=== PATIENT | male | born 2000 ===

== ENCOUNTER 2023-10-17 18:02 | Emergency (ER) | payer BC ==
[~2023-10-17] VITALS: Ht 193 cm; Wt 87.5 kg
[2023-10-17] MEDS ORDERED: CEFAZOLIN SODIUM 1 GM VIAL IM STA (18:42)
[2023-10-17] MEDS ORDERED: CEFTRIAXONE 1G VIAL IVPB STA (18:51)
[2023-10-17] MEDS: DOXYCYCLINE HYCLATE 100 MG TABLET PO STA (19:25)
[2023-10-17] MEDS: CEFTRIAXONE 1G VIAL IM ONE (19:28)
[2023-10-17] MEDS: TETANUS/DIPHTHERIA TOXOID [ADULT] 0.5 ML VIAL IM ONE (19:29)
[2023-10-17] MEDS: LIDOCAINE HCL 1% 20 ML VIAL ONE (19:42)
[2023-10-17] MEDS ORDERED: LIDOCAINE HCL 400MG/20ML VIAL IJ SCH (20:00)
[2023-10-17] MEDS: LIDOCAINE HCL-MPF 2% 5ML VIAL ONE (20:00)
[2023-10-17] MEDS: LIDOCAINE HCL MPF 1% 5ML VIAL IJ SCH (20:01)
[2023-10-17] MEDS ORDERED: CEPH500B PO (20:28)
[2023-10-17] MEDS: NEOMY SULF/BACITRA/POLYMYXIN B 1 EACH PACKET TP STA (20:35)
[2023-10-17 20:50] VITALS: BP 117/75; PULSE 65; RESP 18; O2SAT 99
== END 2023-10-17 20:50 | disposition home or self-care (01) ==
LOC: EDH 18:02
DX: S91.311A Laceration without foreign body, right foot, initial encounter (principal); J45.909 Unspecified asthma, uncomplicated; Z79.899 Other long term (current) drug therapy; Z98.890 Other specified postprocedural states; W18.39XA Other fall on same level, initial encounter; Y93.89 Activity, other specified; Y92.89 Other specified places as the place of occurrence of the external cause; Y99.8 Other external cause status
CPT/HCPCS: 99284; 90714; 96372; 90471; 12004; J0696; J3490 ×2